=== PATIENT | female | born 1975 | race Two or more races ===

== ENCOUNTER 2024-09-03 12:53 | Emergency (ER) | payer MEDICAID ==
[~2024-09-03] VITALS: Ht 165.1 cm; Wt 70.8 kg
[2024-09-03 13:15] VITALS: BP 128/72; TEMP 98.7
[2024-09-03] MEDS ORDERED: BENZ-13 PO (13:45)
[2024-09-03] MEDS ORDERED: AMOX-430 PO (13:45)
[2024-09-03] MEDS ORDERED: ALBU2.5V11 MC (13:45)
[2024-09-03] MEDS ORDERED: AZIT250T13 PO (13:45)
[2024-09-03] MEDS ORDERED: PRED20TA PO (13:45)
[2024-09-03 14:32] VITALS: O2SAT 98
== END 2024-09-03 14:33 | disposition home or self-care (01) ==
LOC: ER 12:56
DX: J20.9 Acute bronchitis, unspecified (principal); Z79.52 Long term (current) use of systemic steroids; R07.89 Other chest pain; R06.02 Shortness of breath; R05.9 Cough, unspecified; Z20.822 Contact with and (suspected) exposure to COVID-19

== ENCOUNTER 2024-10-19 13:22 | Emergency (ER) | payer MEDICAID ==
[~2024-10-19] VITALS: Ht 152.4 cm; Wt 78.0 kg
[~2024-10-19 13:22] MED LIST: ALBU2.5V11 MC; AMOX-430 PO; AZIT250T13 PO; BENZ-13 PO; PRED20TA PO
[2024-10-19 13:31] VITALS: BP 122/87; TEMP 98
[2024-10-19] MEDS ORDERED: TDAP [DIPH/PERTUSSIS/TET] 0.5 ML VIAL IM ONE (14:26)
[2024-10-19] MEDS ORDERED: LORAZEPAM INJ 2 MG/ML VIAL ONE (14:30)
[2024-10-19] MEDS: TDAP [DIPH/PERTUSSIS/TET] 0.5 ML VIAL IM ONE (14:36)
[2024-10-19 14:41] VITALS: O2SAT 97
== END 2024-10-19 14:42 | disposition home or self-care (01) ==
LOC: ER 13:22
DX: T21.12XA Burn of first degree of abdominal wall, initial encounter (principal); T21.11XA Burn of first degree of chest wall, initial encounter; Z79.899 Other long term (current) drug therapy; Z79.52 Long term (current) use of systemic steroids; X12.XXXA Contact with other hot fluids, initial encounter; Y93.89 Activity, other specified; Y92.89 Other specified places as the place of occurrence of the external cause; Y99.9 Unspecified external cause status
CPT/HCPCS: 90715; J2060